=== PATIENT | female | born 2000 | race Caucasian/White ===

== ENCOUNTER 2020-06-06 10:58 | Emergency (ER) | payer OTHER ==
[2020-06-06 11:13] VITALS: BP 117/81; PULSE 93; TEMP 98.2; BMI 267.8
[2020-06-06] MEDS ORDERED: SODIUM CHLORIDE 1,000 ML IV STA (11:43)
[2020-06-06] MEDS ORDERED: ACETAMINOPHEN 1000 MG/100 ML VIAL (NON FORMULARY) IVPB ONE (11:43)
[2020-06-06] MEDS ORDERED: METOCLOPRAMIDE HCL INJECTION 10 MG/2 ML VIAL IVPB ONE (11:43)
[2020-06-06] MEDS ORDERED: ACETAMINOPHEN INJECTION 100 ML IVPB ONE (12:02)
[2020-06-06] MEDS ORDERED: METOCLOPRAMIDE HCL INJECTION 10 MG/2 ML VIAL ONE (12:02)
[2020-06-06 12:13] LABS: BASO % 0.5 % (0-2.0); EOS % 0.7 % (0-4.5); HEMATOCRIT 39.8 % (32.4-45.2); LYMPH % 12.4 % (8-40); MCH 32.5 pg (25.7-33.7); MCHC 35.2 g/dl (32.0-36.0); MEAN CELL VOLUME 92.3 fl (80-96); MEAN PLT VOLUME 9.2 fl (7.5-11.1); NEUT % 82.4 % (42.8-82.8); PLATELET COUNT 200 K/MM3 (134-434); RBC 4.31 M/mm3 (3.60-5.2); RDW 13.2 % (11.6-15.6); WHITE BLOOD COUNT 9.4 K/mm3 (4.0-10.0)
[2020-06-06 12:23] LABS: POTASSIUM 3.9 mmol/L (3.5-5.1)
[2020-06-06 12:24] LABS: CALCIUM 9.5 mg/dL (8.5-10.1)
[2020-06-06 12:25] LABS: ALBUMIN 4.2 g/dl (3.4-5.0); BLOOD UREA NITROGEN 13.8 mg/dL (7-18)
[2020-06-06 12:28] LABS: CREATININE 0.7 mg/dL (0.55-1.3)
[2020-06-06 12:29] LABS: BILIRUBIN,TOTAL 1.1 mg/dL (0.2-1); TOT PROT 8.2 g/dl (6.4-8.2)
[2020-06-06] MEDS ORDERED: KETOROLAC TROMETHAMINE 60 MG/2 ML VIAL IVPUSH ONE (14:45)
[2020-06-06] MEDS ORDERED: KETOROLAC TROMETHAMINE 30 MG/1 ML VIAL ONE (14:52)
== END 2020-06-06 15:08 | disposition home or self-care (01) ==
LOC: JER 10:58
PROC: 3E033GC Introduction of Other Therapeutic Substance into Peripheral Vein, Percutaneous Approach (ICD-10-PCS; principal; 2020-06-06)
PROC: 3E0337Z Introduction of Electrolytic and Water Balance Substance into Peripheral Vein, Percutaneous Approach (ICD-10-PCS; principal; 2020-06-06)
DX: R51.9 Headache, unspecified (principal); J01.20 Acute ethmoidal sinusitis, unspecified
CPT/HCPCS: 36415; 70450-TC; 80053; 84703; 85025; 99285-25; C9803; J0131; U0003; U0005

== ENCOUNTER 2020-11-13 14:12 | Emergency (ER) | payer OTHER ==
[2020-11-13 14:22] VITALS: BP 109/70; PULSE 88; TEMP 98.8; BMI 25.2
[2020-11-13 17:09] LABS: PH,URINE 8.5 (5.0-8.0); URINE APPEARANCE CLEAR; URINE BILIRUBIN NEGATIVE (NEGATIVE); URINE COLOR YELLOW; URINE GLUCOSE (UA) NEGATIVE (NEGATIVE); URINE KETONE NEGATIVE (NEGATIVE); URINE LEUK ESTERASE NEGATIVE (NEGATIVE); URINE NITRITE NEGATIVE (NEGATIVE); URINE PROTEIN NEGATIVE (NEGATIVE)
[2020-11-13 17:33] LABS: BASO % 0.4 % (0-2.0); EOS % 1.2 % (0-4.5); HEMATOCRIT 37.7 % (32.4-45.2); HEMOGLOBIN 13.5 GM/dL (10.7-15.3); LYMPH % 29.3 % (8-40); MCH 32.5 pg (25.7-33.7); MCHC 35.8 g/dl (32.0-36.0); MEAN CELL VOLUME 90.8 fl (80-96); MEAN PLT VOLUME 8.5 fl (7.5-11.1); MONO % 6.8 % (3.8-10.2); NEUT % 62.3 % (42.8-82.8); PLATELET COUNT 229 10^3/uL (134-434); RBC 4.15 M/mm3 (3.60-5.2); RDW 13.5 % (11.6-15.6); WHITE BLOOD COUNT 7.4 K/mm3 (4.0-10.0)
[2020-11-13 17:48] LABS: CHLORIDE 106 mmol/L (98-107); SODIUM 140 mmol/L (136-145)
[2020-11-13 17:50] LABS: CALCIUM 8.7 mg/dL (8.5-10.1)
[2020-11-13 17:51] LABS: ALBUMIN 3.7 g/dl (3.4-5.0); ANION GAP 2 MMOL/L (8-16); BLOOD UREA NITROGEN 8.4 mg/dL (7-18); CO2 32 mmol/L (21-32); GLUCOSE,RANDOM 78 mg/dL (74-106)
[2020-11-13 17:54] LABS: CREATININE 0.7 mg/dL (0.55-1.3); SGOT/AST 12 U/L (15-37); SGPT/ALT 10 U/L (13-61)
[2020-11-13 17:55] LABS: BILIRUBIN,TOTAL 0.7 mg/dL (0.2-1); TOT PROT 7.3 g/dl (6.4-8.2)
[2020-11-13 17:57] LABS: ALK PHOS 75 U/L (45-117)
== END 2020-11-13 18:30 | disposition home or self-care (01) ==
LOC: JER 14:12 → JERFT 14:12 → JER 18:30
DX: N93.9 Abnormal uterine and vaginal bleeding, unspecified (principal)
CPT/HCPCS: 36415; 76817-TC; 80053; 81003; 84702; 85025; 86850; 86900; 86901; 87086; 99284-25

== ENCOUNTER 2020-11-14 20:35 | Emergency (ER) | payer OTHER ==
[2020-11-14 20:48] VITALS: BP 113/75; PULSE 89; TEMP 97.6; BMI 25.8
== END 2020-11-14 21:38 | disposition left against medical advice (07) ==
LOC: JER 20:35
DX: R10.2 Pelvic and perineal pain (principal)
CPT/HCPCS: 99281-25

== ENCOUNTER 2022-05-24 18:41 | Inpatient (IN) | payer OTHER ==
[2022-05-24] MEDS: ELECTROLYTE-148 SOLN 1,000 ML IV SCH (19:20)
[2022-05-24 19:36] LABS: BASO % 0.4 % (0-2.0); EOS % 0.4 % (0-4.5); HEMATOCRIT 36.4 % (32.4-45.2); HEMOGLOBIN 12.8 GM/dL (10.7-15.3); LYMPH % 27.5 % (8-40); MCH 31.2 pg (25.7-33.7); MCHC 35.2 g/dl (32.0-36.0); MEAN CELL VOLUME 88.6 fl (80-96); MEAN PLT VOLUME 8.9 fl (7.5-11.1); MONO % 7.6 % (3.8-10.2); NEUT % 64.1 % (42.8-82.8); PLATELET COUNT 197 10^3/uL (134-434); RDW 13.4 % (11.6-15.6); WHITE BLOOD COUNT 8.4 K/mm3 (4.0-10.0)
[2022-05-24] MEDS ORDERED: BUTORPHANOL TARTRATE 2 MG/ML VIAL ONE (19:36)
[2022-05-24] MEDS ORDERED: PROMETHAZINE HCL 25 MG/1 ML VIAL ONE (19:36)
[2022-05-24 19:45] LABS: INR 0.96 (0.83-1.09); PROTHROMBIN TIME (PATIENT) 11.1 SEC (9.7-13.0)
[2022-05-24] MEDS ORDERED: PROMETHAZINE HCL 25 MG/1 ML VIAL IVPB ONE (19:45)
[2022-05-24] MEDS ORDERED: BUTORPHANOL TARTRATE 2 MG/ML VIAL IVPB ONE (19:45)
[2022-05-24 19:47] LABS: ACTIVATED PTT 30.6 SECONDS (25.2-36.5)
[2022-05-24 19:57] LABS: CALCIUM 8.9 mg/dL (8.5-10.1)
[2022-05-24 19:58] LABS: BLOOD UREA NITROGEN 6.7 mg/dL (7-18)
[2022-05-24 20:01] LABS: CREATININE 0.5 mg/dL (0.55-1.3)
[2022-05-24 20:25] VITALS: BMI 27.1
[2022-05-24] MEDS ORDERED: AMPICILLIN - 2 GM in SODIUM CHLORIDE 100 ML IVPB ONE (20:30)
[2022-05-24 20:51] LABS: HIV INTERPRETATION NEGATIVE (NEGATIVE)
[2022-05-24] MEDS ORDERED: AMPICILLIN SODIUM 2 GM VIAL ONE (20:58)
[2022-05-24] MEDS ORDERED: OXYTOCIN 30 UNITS in 0.9% NS 30 UNIT/500 ML INFUS.BAG IVPB SCH (23:45)
[2022-05-25 00:05] LABS: COCAINE, UR NEGATIVE (NEGATIVE); OPIATES, URI NEGATIVE (NEGATIVE)
[2022-05-25 00:06] LABS: METHADONE, UR NEGATIVE (NEGATIVE); PHENCYCLIDINE,URINE NEGATIVE (NEGATIVE); URINE AMPHETAMINES NEGATIVE (NEGATIVE); URINE BARBITURATES NEGATIVE (NEGATIVE); URINE BENZODIAZEPINES NEGATIVE (NEGATIVE)
[2022-05-25] MEDS ORDERED: OXYTOCIN 30 UNITS in 0.9% NS 30 UNIT/500 ML INFUS.BAG IVPB ONE (00:17)
[2022-05-25] MEDS: AMPICILLIN - 1 GM in SODIUM CHLORIDE 100 ML IVPB SCH ×2 (02:50→06:40)
[2022-05-25] MEDS ORDERED: AMPICILLIN SODIUM 1 GM VIAL ONE ×2 (03:08→05:41)
[2022-05-25] MEDS ORDERED: SODIUM CHLORIDE 100 ML IVPB ONE (05:41)
[2022-05-25] MEDS: ELECTROLYTE-148 SOLN 1,000 ML IV SCH (06:40)
[2022-05-25 08:18] VITALS: RESP 18
[2022-05-25 09:11] VITALS: BP 108/72; PULSE 72
[2022-05-25 09:12] VITALS: TEMP 98.1
[2022-05-25 12:35] LABS: POC NITRAZINE NEG
== END 2022-05-25 10:20 | disposition home or self-care (01) | DRG 565 ==
LOC: JLDR 18:41
PROVIDERS: ADMIT Student in an Organized Health Care Education/Training Program; ATTEND Student in an Organized Health Care Education/Training Program
DX: O47.1 False labor at or after 37 completed weeks of gestation (principal); Z3A.38 38 weeks gestation of pregnancy
CPT/HCPCS: 36415; 80048; 80307; 83986-QW; 85025; 85610; 85730; 86780; 86850; 86900; 86901; 87389; C9803-CS; U0003; U0005